=== PATIENT | female | born 1940 | race Caucasian/White ===

== ENCOUNTER 2018-06-21 11:51 | Emergency (ER) | payer MEDICARE, MEDICAID ==
[2018-06-21 11:57] VITALS: RESP 20
[2018-06-21] MEDS ORDERED: Sodium Chloride 0.9% 500 ML IV ONE ×2 (12:26→12:34)
[2018-06-21 12:58] LABS: BASO % 0.4 % (0.0-2.0); EOS # 0.1 K/uL (0.0-0.7); EOS % 1.6 % (0.0-4.0); HEMOGLOBIN 11.3 g/dL (11.0-16.0); LYMPH # 1.8 K/uL (1.0-4.3); LYMPH % 21.3 % (20.0-40.0); MEAN CELL VOLUME 86.7 fL (81.0-99.0); MEAN CORPUSCULAR HGB CONC 32.3 g/dL (33.0-37.0); MEAN PLATELET VOLUME 8.2 fL (7.2-11.7); MONO # 0.5 K/uL (0.0-0.8); MONO % 6.2 % (0.0-10.0); NEUT # 6.1 K/uL (1.8-7.0); NEUT % 70.5 % (50.0-75.0); RBC 4.05 Mil/uL (3.80-5.20); RED CELL DISTRIBUTION WIDTH 14.7 % (11.5-14.5); WHITE BLOOD COUNT 8.7 K/uL (4.8-10.8)
[2018-06-21 13:10] LABS: SQUAMOUS EPITHIAL 5 /hpf (0-5); URINE BILIRUBIN NEGATIVE (NEGATIVE); URINE BLOOD 2+ (NEGATIVE); URINE CLARITY Hazy (Clear); URINE COLOR Yellow (YELLOW); URINE GLUCOSE (UA) NORMAL (Normal); URINE LEUKOCYTE ESTERASE TRACE Leu/uL (Negative); URINE PROTEIN NEGATIVE (NEGATIVE); URINE UROBILINOGEN NORMAL mg/dL (0.2-1.0)
[2018-06-21 13:15] LABS: ALB/GLOB RATIO 1.3 (1.0-2.1); ALBUMIN 4.2 g/dL (3.5-5.0); ALT/SGPT 10 U/L (9-52); AST/SGOT 24 U/L (14-36); BLOOD UREA NITROGEN 13 mg/dL (7-17); CALCIUM 9.2 mg/dl (8.6-10.4); GFR NON-AFRICAN AMERICAN > 60; LIPASE 74 U/L (23-300)
[2018-06-21 14:10] VITALS: BP 148/73; PULSE 91; TEMP 97.5; O2SAT 100
--- NOTE | 2018-06-21 14:44 | C.PDOC ---
History Of Present Illness 78 year old female presents to the ED for evaluation of epigastric and periumbilical abdominal pain which began 3 days ago. Patient states her pain is constant, non-radiating and associated with nausea. She states she is scheduled for an appointment with her GI doctor on 06/25. Her pain worsened today, prompting her to come in for evaluation. She denies fever, chills, chest pain, cough, and shortness of breath. Time Seen by Provider: 06/21/18 11:55 Chief Complaint (Nursing): Abdominal Pain History Per: Patient History/Exam Limitations: no limitations Onset/Duration Of Symptoms: Days (3) Current Symptoms Are (Timing): Still Present Location Of Pain/Discomfort: Epigastric, Periumbilical Quality Of Discomfort: "Pain" Associated Symptoms: denies: Fever, Chills, Chest Pain Exacerbating Factors: denies: Cough Additional History Per: Patient Past Medical History Reviewed: Historical Data, Nursing Documentation, Vital Signs Vital Signs: Last Vital Signs Temp 97.5 F L 06/21/18 14:09 Pulse 91 H 06/21/18 14:09 Resp 20 06/21/18 14:09 BP 148/73 06/21/18 14:09 Pulse Ox 100 06/21/18 14:09 - Medical History PMH: No Chronic Diseases Surgical History: No Surg Hx Family History: States: Unknown Family Hx - Social History Hx Alcohol Use: No Hx Substance Use: No - Immunization History Hx Tetanus Toxoid Vaccination: No Hx Influenza Vaccination: Yes Hx Pneumococcal Vaccination: No Review Of Systems Constitutional: Negative for: Fever, Chills Cardiovascular: Negative for: Chest Pain Respiratory: Negative for: Cough, Shortness of Breath Gastrointestinal: Positive for: Abdominal Pain (epigastric and periumbilical ) Physical Exam - Physical Exam Appears: Non-toxic, No Acute Distress, Other (uncomfortable ) Skin: Normal Color, Warm, Dry Head: Atraumatic, Normacephalic Eye(s): bilateral: Normal Inspection Oral Mucosa: Moist Neck: Supple Chest: Symmetrical, No Deformity, No Tenderness Cardiovascular: Rhythm Regular, No Murmur, Other (mild tachycardia ) Respiratory: Normal Breath Sounds, No Rales, No Rhonchi, No Wheezing Gastrointestinal/Abdominal: Soft, Tenderness (epigastric, periumbilical), No Guarding, No Rebound, Other (negative Garcia's sign or McBurney's point tenderness ) Extremity: Normal ROM, Capillary Refill (less than 2 seconds ), No Other (leg swelling ) Neurological/Psych: Oriented x3, Normal Speech, Normal Cognition ED Course And Treatment - Laboratory Results Result Diagrams: 06/21/18 12:48 06/21/18 12:48 Lab Results: Total Bilirubin 0.4 mg/dL (0.2-1.3) 06/21/18 12:48 AST 24 U/L (14-36) 06/21/18 12:48 ALT 10 U/L (9-52) 06/21/18 12:48 Alkaline Phosphatase 69 U/L (38-126) 06/21/18 12:48 Total Protein 7.4 g/dL (6.3-8.3) 06/21/18 12:48 Albumin 4.2 g/dL (3.5-5.0) 06/21/18 12:48 Globulin 3.2 gm/dL (2.2-3.9) 06/21/18 12:48 Albumin/Globulin Ratio 1.3 (1.0-2.1) 06/21/18 12:48 Lipase 74 U/L (23-300) 06/21/18 12:48 Urine Color Yellow (YELLOW) 06/21/18 12:48 Urine Clarity Hazy (Clear) 06/21/18 12:48 Urine pH 5.0 (5.0-8.0) 06/21/18 12:48 Ur Specific [place] 1.000 (1.003-1.030) L 06/21/18 12:48 Urine Protein Negative mg/dL (NEGATIVE) 06/21/18 12:48 Urine Glucose (UA) Normal mg/dL (Normal) 06/21/18 12:48 Urine Ketones Negative mg/dL (NEGATIVE) 06/21/18 12:48 Urine Blood 2+ (NEGATIVE) H 06/21/18 12:48 Urine Nitrate Negative (NEGATIVE) 06/21/18 12:48 Urine Bilirubin Negative (NEGATIVE) 06/21/18 12:48 Urine Urobilinogen Normal mg/dL (0.2-1.0) 06/21/18 12:48 Ur Leukocyte Esterase Trace Jose Alberto/uL (Negative) 06/21/18 12:48 Urine WBC (Auto) 3 /hpf (0-5) 06/21/18 12:48 Urine RBC (Auto) 10 /hpf (0-3) H 06/21/18 12:48 Ur Squamous Epith Cells 5 /hpf (0-5) 06/21/18 12:48 ECG: Interpreted By Me, Viewed By Me ECG Rhythm: Sinus Rhythm Interpretation Of ECG: normal sinus rhythm at rate 92bpm. no acute ST/T wave changes. normal axis. Rate From EC O2 Sat by Pulse Oximetry: 100 (on RA ) Pulse Ox Interpretation: Normal - CT Scan/US CT A/P Other Rad Studies (CT/US): Read By Radiologist, Radiology Report Reviewed CT/US Interpretation: Date of service: 06/21/2018. PROCEDURE: CT Abdomen and Pelvis without intravenous contrast. HISTORY: UPPER ABDOMINAL,PERIUMIBICAL PAIN. COMPARISON: Comparison is made to the previous study dated 12/16/2013. TECHNIQUE: Axial and reformatted coronal and sagittal CT images of the abdomen and pelvis were obtained without IV or oral contrast administration.. Contrast dose: 0. Radiation dose: Total exam DLP = 446.19 mGy-cm. This CT exam was performed using one or more of the following dose reduction techniques: Automated exposure control, adjustment of the mA and/or kV according to patient size, and/or use of iterative reconstruction technique. FINDINGS: LOWER THORAX: No evidence of acute pathology. LIVER: Unremarkable. No gross lesion or ductal dilatation. GALLBLADDER AND BILE DUCTS: Unremarkable. PANCREAS: Unremarkable. No gross lesion or ductal dilatation. SPLEEN: Unremarkable. ADRENALS: Unremarkable. No mass. KIDNEYS AND URETERS: Patient is again status post prior right nephrectomy. No significant interval change in left kidney compared to the prior study. No evidence of significant hydronephrosis or hydroureter. VASCULATURE: Unremarkable. No aortic aneurysm. Foci of atherosclerotic calcification noted in the abdominal aorta. BOWEL: Mild wz-ki-xpkybsrvug dilated small bowel loops at the mid and lower abdomen noted. The possibility of low grade small bowel obstruction should be considered. The stomach is not distended. Again noted are scattered colonic diverticulosis without evidence of diverticulitis. APPENDIX: No evidence of appendicitis. PERITONEUM: No evidence of free fluid or free air in the abdomen and pelvis. LYMPH NODES: There are jlzcad-ep-cutkoxgxre enlarged lymph nodes and soft tissue density noted in the right mid abdomen inferior to the right renal fossa of uncertain etiology. Otherwise no evidence of significant retroperitoneal lymphadenopathy. BLADDER: The urinary bladder is seen at low position sug gestive of mild cystocele. REPRODUCTIVE: Unremarkable. BONES: No acute fracture. Grade 1 anterior spondylolisthesis of L4 on L5 is noted. OTHER FINDINGS: None. IMPRESSION: Pqxikt-gg-figbyrqljk dilated small bowel loops at the mid and lower abdomen. The possibility of low grade small bowel obstruction should be considered. The differential consideration includes less likely bowel ileus. Interval appearance of gcirxf-yl-bthwnnwzzz enlarged lymph nodes at the right mid abdomen inferior to the right renal fossa. The differential consideration include reactive lymph nodes versus malignant neoplasm. Further evaluation is recommended. If indicated further evaluation by PET-CT may be obtained. Medical Decision Making Medical Decision Making: Progress: Bloodwork, urinalysis, EKG, CT A/P ordered and reviewed. Protonix IVP and IV fluids given. Disposition Counseled Patient/Family Regarding: Studies Performed, Diagnosis, Need For Followup, Rx Given - Disposition Referrals: mEilia Godoy MD [Staff Provider] - Mickey Dunne MD [Staff Provider] - Disposition: AGAINST MEDICAL ADVICE Disposition Time: 15:30 Condition: STABLE Additional Instructions: YOU HAVE A POSSIBLE SMALL BOWEL OBSTRUCTION RETURN TO ER IMMEDIATELY IF YOUR SYMPTOMS WORSEN FOLLOW UP WITH DR GODOY IN 1-2 DAYS, AND WITH GI SPECIALIST SCHEDULED Instructions: Acute Abdomen (Belly Pain), Adult (DC), Leaving Against Medical Advice Forms: Monitoring Division (Kenyan), (AMA) Informed Refusal Print Language: POLISH - Clinical Impression Clinical Impression: SBO (small bowel obstruction), Abdominal pain, Left against medical advice - Scribe Statement The provider has reviewed the documentation as recorded by the Scribe (Sera Godoy) Provider Attestation: All medical record entries made by the Scribe were at my direction and personally dictated by me. I have reviewed the chart and agree that the record accurately reflects my personal performance of the history, physical exam, medical decision making, and the department course for this patient. I have also personally directed, reviewed, and agree with the discharge instructions and disposition.
--- NOTE | 2018-06-21 15:02 | CT ---
Date of service: 06/21/2018 PROCEDURE: CT Abdomen and Pelvis without intravenous contrast HISTORY: UPPER ABDOMINAL,PERIUMIBICAL PAIN COMPARISON: Comparison is made to the previous study dated 12/16/2013 TECHNIQUE: Axial and reformatted coronal and sagittal CT images of the abdomen and pelvis were obtained without IV or oral contrast administration.. Contrast dose: 0 Radiation dose: Total exam DLP = 446.19 mGy-cm. This CT exam was performed using one or more of the following dose reduction techniques: Automated exposure control, adjustment of the mA and/or kV according to patient size, and/or use of iterative reconstruction technique. FINDINGS: LOWER THORAX: No evidence of acute pathology. LIVER: Unremarkable. No gross lesion or ductal dilatation. GALLBLADDER AND BILE DUCTS: Unremarkable. PANCREAS: Unremarkable. No gross lesion or ductal dilatation. SPLEEN: Unremarkable. ADRENALS: Unremarkable. No mass. KIDNEYS AND URETERS: Patient is again status post prior right nephrectomy. No significant interval change in left kidney compared to the prior study. No evidence of significant hydronephrosis or hydroureter. VASCULATURE: Unremarkable. No aortic aneurysm. Foci of atherosclerotic calcification noted in the abdominal aorta. BOWEL: Dykizn-yv-hvbrwiyuom dilated small bowel loops at the mid and lower abdomen noted. The possibility of low grade small bowel obstruction should be considered. The stomach is not distended. Again noted are scattered colonic diverticulosis without evidence of diverticulitis. APPENDIX: No evidence of appendicitis. PERITONEUM: No evidence of free fluid or free air in the abdomen and pelvis. LYMPH NODES: There are njuqrl-cb-qysgxhsdwk enlarged lymph nodes and soft tissue density noted in the right mid abdomen inferior to the right renal fossa of uncertain etiology. Otherwise no evidence of significant retroperitoneal lymphadenopathy. BLADDER: The urinary bladder is seen at low position suggestive of mild cystocele. REPRODUCTIVE: Unremarkable. BONES: No acute fracture. Grade 1 anterior spondylolisthesis of L4 on L5 is noted. OTHER FINDINGS: None. IMPRESSION: Yxwrjx-zw-asswyhwtzm dilated small bowel loops at the mid and lower abdomen. The possibility of low grade small bowel obstruction should be considered. The differential consideration includes less likely bowel ileus. Interval appearance of mvknhx-il-viicvrsehj enlarged lymph nodes at the right mid abdomen inferior to the right renal fossa. The differential consideration include reactive lymph nodes versus malignant neoplasm. Further evaluation is recommended. If indicated further evaluation by PET-CT may be obtained.
--- NOTE | 2018-06-23 23:59 | CARD ---
APPROVED REPORT Date of service: 06/21/2018 EKG Measurement Heart [id number] <Conclusion> Normal sinus rhythm Possible Left atrial enlargement Borderline ECG
== END 2018-06-21 15:49 | disposition left against medical advice (07) ==
LOC: C.ER 11:51
DX: K56.609 Unspecified intestinal obstruction, unspecified as to partial versus complete obstruction (principal); R10.13 Epigastric pain
CPT/HCPCS: 36415; 74176; 80053; 81001; 83690; 85025; 93005; 96374; 99285; C9113; J7040

== ENCOUNTER 2018-07-01 07:29 | Day surgery (SDC) | payer MEDICARE, MEDICAID ==
[2018-07-01 08:17] VITALS: O2SAT 100
[2018-07-01] MEDS ORDERED: Lactated Ringer's 1,000 ML IV ONE (09:45)
[2018-07-01] MEDS ORDERED: Propofol 10 mg/ml Inj (20 ML) ONE (09:49)
[2018-07-01 11:30] VITALS: BP 127/59; PULSE 82; RESP 19; TEMP 97.6
== END 2018-07-01 11:35 | disposition home or self-care (01) ==
LOC: C.ENDO 07:29
PROVIDERS: ATTEND Internal Medicine Gastroenterology
DX: K29.70 Gastritis, unspecified, without bleeding (principal); Z12.11 Encounter for screening for malignant neoplasm of colon; R10.13 Epigastric pain; K64.1 Second degree hemorrhoids; K57.90 Diverticulosis of intestine, part unspecified, without perforation or abscess without bleeding
CPT/HCPCS: 43239; 45378; 82948; 88305; J2001; J2704; J7120